=== PATIENT | female | born 1995 | race Caucasian/White ===

== ENCOUNTER 2018-06-06 15:30 | Outpatient (CLI) | payer BC | END 2018-06-06 15:33 | LOC: LABRHC 15:30 | PROVIDERS: ATTEND Family Medicine | DX: R10.2 Pelvic and perineal pain (principal) | CPT/HCPCS: 87491; 87591 ==

== ENCOUNTER 2018-06-10 08:59 | Outpatient (CLI) | payer BC ==
[2018-06-10 09:14] LABS: BASOPHILS % 0.5 (0.0-1.5); EOSINOPHILS % 2.9 % (0.0-6.8); MEAN CORPUSCULAR HEMOGLOBIN 31.1 pg (28.0-34.0); MONOCYTES % 4.5 % (0.0-11.0)
--- NOTE | 2018-06-10 10:08 | Diagnostic Imaging Report ---
EVA HOLCOMB [facility] [id number] [facility].[address] [id number] Report Submission Date: Jun 10, 2018 10:05:43 AM JAVA PROGRAMMER ANALYST Patient Study Name: IDANIA PORTILLO Date: Jun 10, 2018 9:15:50 AM JAVA PROGRAMMER ANALYST Modality Type: US Gender: F Description: US TRANSVAGINAL PELVIS : 89 Institution: [facility] Physician: EVA HOLCOMB Pelvic ultrasound History: Right-sided pelvic pain Transverse and longitudinal images were obtained through the pelvis endovaginally. Spectral and color flow imaging was performed The uterus is normal in size measuring 7.7 x 3.3 x 4.6 cm in greatest dimension. The myometrium is unremarkable. An IUD is appropriately positioned within the endometrium. The endometrium cannot be accurately measured due to shadowing associated with the IUD but the endometrium does not appear thickened. The right ovary measures 3.4 x 1.2 x 2.1 cm in greatest dimension. The left ovary measures 2.1 x 1.9 x 1.5 cm in greatest dimension. Both ovaries appear normal with normal color flow and normal waveforms. No free fluid is noted in the cul-de-sac. Impression: Presence of an appropriately positioned IUD. Otherwise, normal pelvic ultrasound. Electronically signed on Jun 10, 2018 10:05:43 AM JAVA PROGRAMMER ANALYST by: Juliet FARNSWORTH
[2018-06-10 10:38] LABS: eGFR (Non-African) > 60
== END 2018-06-10 09:02 ==
LOC: RAD 08:59
PROVIDERS: ATTEND Family Medicine
DX: R10.2 Pelvic and perineal pain (principal); Z97.5 Presence of (intrauterine) contraceptive device
CPT/HCPCS: 36415; 76830; 80053; 85025

== ENCOUNTER 2018-10-01 16:21 | Outpatient (CLI) | payer BC ==
[2018-10-01 19:00] LABS: eGFR (Non-African) > 60
== END 2018-10-01 16:23 ==
LOC: LAB 16:21
PROVIDERS: ATTEND Family Medicine
DX: R53.83 Other fatigue (principal)
CPT/HCPCS: 36415; 80053; 84439; 84443; 84481; 85651; 86038; 86225; 86235